=== PATIENT | male | born 1940 | race Caucasian/White ===

== ENCOUNTER 2024-04-29 08:56 | Inpatient (IN) | payer MEDICARE, BC ==
[~2024-04-29] VITALS: Ht 177.8 cm; Wt 79.4 kg
[2024-04-29] MEDS: IV NS 0.9% 500 ML BAG IV ONE (09:45)
[2024-04-29 09:53] LABS: BASOPHILS % (AUTO) 0.1 % (0.0-2.0); EOSINOPHILS # (AUTO) 0.1 K/uL (0.0-0.7); EOSINOPHILS % (AUTO) 1.4 % (0.0-6.0); HEMATOCRIT 39 % (39-51); HEMOGLOBIN 12.9 g/dL (13.5-17.5); LYMPHOCYTES % (AUTO) 18.7 % (20.0-44.0); MEAN CORPUSCULAR HEMOGLOBIN 31 PG (26.0-33.0); MEAN CORPUSCULAR HGB CONC 34 g/dl (31.0-36.0); MEAN CORPUSCULAR VOLUME 93 fL (80-96); MONOCYTES # (AUTO) 0.5 K/uL (0.1-1.30); MONOCYTES % (AUTO) 9.8 % (2.0-12.0); NEUTROPHILS # (AUTO) 3.7 K/uL (1.8-8.9); PLATELET COUNT (AUTO) 194 K/uL (150-450); RED BLOOD CELL COUNT(AUTO) 4.15 MIL/uL (4.5-6.0); RED CELL DISTRIBUTION WIDTH 14.1 % (11.5-15.0); WHITE BLOOD COUNT (AUTO) 5.3 K/uL (4.3-11.0)
[2024-04-29 10:03] LABS: CALCIUM, SERUM 9.2 mg/dL (8.5-10.1); CARBON DIOXIDE 30 mmol/L (21-32); CHLORIDE 106 mmol/L (98-107); GLUCOSE 131 mg/dL (74-106); POTASSIUM 3.7 mmol/L (3.5-5.1); SODIUM SERUM 140 mmol/L (136-145); UREA NITROGEN, BLOOD 18 mg/dL (7-18)
[2024-04-29 10:06] LABS: PARTIAL THROMBOPLASTIN TIME 28.6 SEC (24.3-34.3); PROTHROMBIN TIME 10.3 SECS (9.2-11.1)
[2024-04-29 10:12] LABS: ALANINE AMINOTRANSFERASE 15 U/L (12-78); ALBUMIN 3.3 g/dL (3.4-5.0); ALKALINE PHOSPHATASE 74 U/L (46-116); ASPARTATE AMINOTRANSFERASE 18 U/L (15-37); BILIRUBIN,DIRECT 0.3 mg/dL (0.0-0.2); BILIRUBIN,TOTAL 1.7 mg/dL (0.2-1.0); TOTAL PROTEIN, SERUM 6.8 g/dL (6.4-8.2)
[2024-04-29 10:13] LABS: ALCOHOL, BLOOD < 3 mg/dL (0-10)
[2024-04-29 10:20] LABS: SERUM AMMONIA 10 umol/L (11-32)
[2024-04-29 10:49] LABS: APPEARANCE,URINE Clear (CLEAR); BILIRUBIN,URINE Negative (NEGATIVE); BLOOD, URINE Negative Ery/uL (NEGATIVE); COLOR,URINE YELLOW (YELLOW); KETONES,URINE Negative (NEGATIVE); LEUKOCYTE ESTERASE ,URINE Negative (NEGATIVE); NITRITE, URINE Negative (NEGATIVE); PROTEIN,URINE Negative (NEGATIVE); UGLUCOSE Negative (NEGATIVE); UROBILINOGEN,URINE 0.2 EU/dL (0.2)
[2024-04-29] MEDS ORDERED: EYEL50FO2 TP (10:55)
[2024-04-29] MEDS ORDERED: FOLI0.4T6 PO (10:55)
[2024-04-29] MEDS ORDERED: PROP15DR EACHEYE (10:55)
[2024-04-29] MEDS ORDERED: POLY17PO4 PO (10:55)
[2024-04-29] MEDS ORDERED: ENOX40DI9 SQ (10:55)
[2024-04-29] MEDS ORDERED: CHOL200026 PO (10:55)
[2024-04-29] MEDS ORDERED: MENT113O MC (10:55)
[2024-04-29] MEDS ORDERED: ATOR20TA PO (10:55)
[2024-04-29] MEDS ORDERED: MIDO5TAB4 PO (10:55)
[2024-04-29] MEDS ORDERED: SENN8.6T19 PO (10:55)
[2024-04-29 11:03] LABS: AMPHETAMINE, URINE NEGATIVE (NEGATIVE); BARBITURATE, URINE NEGATIVE (NEGATIVE); BENZODIAZEPINE, URINE NEGATIVE (NEGATIVE); CANNABINOID, URINE NEGATIVE (NEGATIVE); COCCAINE, URINE NEGATIVE (NEGATIVE); OPIATE, URINE NEGATIVE (NEGATIVE); PHENCYCLIDINE SCREEN,URINE NEGATIVE (NEGATIVE)
[2024-04-29 11:16] VITALS: O2SAT 97
[2024-04-29] MEDS ORDERED: ACETAMINOPHEN 325 MG TABLET PO PRN (12:30)
[2024-04-29] MEDS ORDERED: ONDANSETRON HCL/PF 4 MG/2 ML VIAL IVP PRN (12:30)
[2024-04-29] MEDS ORDERED: Z GUARD REMEDY 4 OZ OINT TP PRN (12:30)
[2024-04-29] MEDS ORDERED: ENOXAPARIN SODIUM 40 MG/0.4 ML DISP.SYRIN SQ SCH (12:30)
[2024-04-29] MEDS: MIDODRINE HCL (5MG) 5 MG TABLET PO SCH (13:00)
[2024-04-29] MEDS: IV NS 0.9% 1,000 ML IV PRN (13:20)
[2024-04-29 16:41] VITALS: BP 119/79; TEMP 98.1; O2SAT 95
[2024-04-29 20:14] VITALS: BP 158/88; TEMP 97.2; O2SAT 96
[2024-04-29] MEDS: SENNOSIDES 8.6 MG TABLET PO SCH (22:05)
[2024-04-29] MEDS: ATORVASTATIN 10 MG TABLET PO SCH (22:05)
[2024-04-30 06:55] LABS: BASOPHILS % (AUTO) 0.3 % (0.0-2.0); EOSINOPHILS # (AUTO) 0.1 K/uL (0.0-0.7); EOSINOPHILS % (AUTO) 1.5 % (0.0-6.0); HEMATOCRIT 38 % (39-51); HEMOGLOBIN 12.7 g/dL (13.5-17.5); LYMPHOCYTES % (AUTO) 14.6 % (20.0-44.0); MEAN CORPUSCULAR HEMOGLOBIN 32 PG (26.0-33.0); MEAN CORPUSCULAR HGB CONC 34 g/dl (31.0-36.0); MEAN CORPUSCULAR VOLUME 94 fL (80-96); MONOCYTES # (AUTO) 0.7 K/uL (0.1-1.30); NEUTROPHILS # (AUTO) 4.8 K/uL (1.8-8.9); NEUTROPHILS % (AUTO) 73.6 % (43.0-81.0); PLATELET COUNT (AUTO) 191 K/uL (150-450); RED BLOOD CELL COUNT(AUTO) 4.04 MIL/uL (4.5-6.0); RED CELL DISTRIBUTION WIDTH 14.3 % (11.5-15.0); WHITE BLOOD COUNT (AUTO) 6.5 K/uL (4.3-11.0)
[2024-04-30 07:00] VITALS: BP 162/98; TEMP 98.1; O2SAT 97
[2024-04-30 07:36] LABS: CALCIUM, SERUM 8.8 mg/dL (8.5-10.1); CREATININE 0.8 mg/dL (0.6-1.3); MAGNESIUM 2.2 mg/dL (1.8-2.4); PHOSPHORUS 3.5 mg/dL (2.5-4.9); POTASSIUM 3.7 mmol/L (3.5-5.1)
[2024-04-30] MEDS: POLYETHYLENE GLYCOL 3350 17 GM POWD.PACK PO SCH (08:37)
[2024-04-30] MEDS: LOSARTAN POTASSIUM 50 MG TABLET PO SCH (08:38)
[2024-04-30] MEDS: ENOXAPARIN SODIUM 40 MG/0.4 ML DISP.SYRIN SQ SCH (08:39)
[2024-04-30] MEDS ORDERED: ENOXAPARIN SODIUM 40 MG/0.4 ML DISP.SYRIN SQ SCH (09:00)
[2024-04-30 16:00] VITALS: BP 160/100; TEMP 99.1; O2SAT 94
[2024-04-30] MEDS: hydrALAZINE HCL 50 MG TABLET PO PRN (17:47)
[2024-04-30 20:00] VITALS: BP 150/90; TEMP 98.2; O2SAT 95
[2024-04-30] MEDS ORDERED: LORAZEPAM INJ 2 MG/ML VIAL IM PRN (22:00)
[2024-05-01 07:00] VITALS: BP 142/110; TEMP 98.1; O2SAT 96
== END 2024-05-01 10:00 | DRG 57 ==
LOC: ER 09:00 → MED 12:02
PROVIDERS: ADMIT Nurse Practitioner Acute Care; ATTEND Nurse Practitioner Acute Care
DX: G20.A1 Parkinson's disease without dyskinesia, without mention of fluctuations (principal); M62.3 Immobility syndrome (paraplegic); E78.5 Hyperlipidemia, unspecified; E80.6 Other disorders of bilirubin metabolism; Z79.01 Long term (current) use of anticoagulants; Z79.899 Other long term (current) drug therapy
CPT/HCPCS: 36415; 70450-TC; 71045-TC; 80048-TC; 80061-TC; 80076-TC; 82140-TC; 82962-TC; 83735-TC; 84100-TC; 84443-TC; 85025-TC; 85730-TC; 97110-TC; 97116-TC; 97530-TC; A4223; G0378; G0480; J1650; J7030; J7040